=== PATIENT | male | born 1940 ===

== ENCOUNTER 2019-03-11 13:31 | Outpatient (CLI) | payer OTHER ==
[~2019-03-11] VITALS: Ht 160 cm; Wt 61.2 kg
== END 2019-03-11 13:45 | disposition home or self-care (01) ==
LOC: OFIC 805 13:31
DX: J30.89 Other allergic rhinitis (principal); R49.0 Dysphonia; K21.0 Gastro-esophageal reflux disease with esophagitis

== ENCOUNTER 2019-04-22 09:16 | Outpatient (CLI) | payer OTHER ==
[~2019-04-22] VITALS: Ht 152.4 cm; Wt 61.2 kg
== END 2019-04-22 09:35 | disposition home or self-care (01) ==
LOC: OFIC 805 09:16
DX: J30.89 Other allergic rhinitis (principal); K21.0 Gastro-esophageal reflux disease with esophagitis